=== PATIENT | male | born 1965 | race Caucasian/White ===

== ENCOUNTER 2016-11-19 16:34 | Emergency (ER) | payer SELFPAY ==
[~2016-11-19] VITALS: Ht 177.8 cm; Wt 79.0 kg
[~2016-11-19 16:34] MED LIST: DEPA500T3
[2016-11-19 16:37] VITALS: BP 140/78; PULSE 96; RESP 20; TEMP 98.4; O2SAT 97
--- NOTE | 2016-11-19 17:19 | PD ---
Physical Exam Time Seen by Provider: 17:14 Narrative 51yo M c/o L thumb discomfort after splinting applied Saturday at Urgent care for broken wrist. Patient seen in triage. VS reviewed. Awaiting bed placement. Data Data Last Documented VS Vital Signs Date Time Temp Pulse Resp B/P Pulse Ox O2 Delivery O2 Flow Rate FiO2 11/19/16 16:37 98.4 96 20 140/78 97 Room Air [facility] Supervised Visit with VALERIE: Daniella Pepper Nov 19, 2016 17:19
[2016-11-23] MEDS ORDERED: LEVE500T8 PO (09:42)
[2016-11-23] MEDS ORDERED: PRED10 PO (09:42)
[2016-11-23] MEDS ORDERED: DILA100C PO (09:42)
== END 2016-11-19 20:07 | disposition left against medical advice (07) ==
LOC: NED 16:34
DX: S69.92XA Unspecified injury of left wrist, hand and finger(s), initial encounter (principal); X58.XXXA Exposure to other specified factors, initial encounter; Z53.21 Procedure and treatment not carried out due to patient leaving prior to being seen by health care provider
CPT/HCPCS: 99281